=== PATIENT | male | born 1990 | race Caucasian/White ===

== ENCOUNTER 2017-05-02 13:12 | Emergency (ER) | payer OTHER ==
[~2017-05-02] VITALS: Ht 175.3 cm; Wt 82.5 kg
[~2017-05-02 13:12] MED LIST: CLINDAMYCIN HC300 MG PO; HYDROCODON-ACE1 EAC7 PO; IBUPROFEN PM C1 EACH PO; NAPROXEN500 MG PO; PERCOCET 5/31 TABLET PO
[2017-05-02 15:24] VITALS: BP 122/73
== END 2017-05-02 15:25 | disposition home or self-care (01) ==
LOC: EME 13:12
DX: F43.21 Adjustment disorder with depressed mood (principal); F41.9 Anxiety disorder, unspecified; F12.10 Cannabis abuse, uncomplicated; F10.10 Alcohol abuse, uncomplicated
CPT/HCPCS: 90837; 99281; 99283